=== PATIENT | male | born 1965 | race Caucasian/White ===

== ENCOUNTER 2021-03-15 02:07 | Outpatient (CLI) | payer OTHER, SELFPAY ==
--- NOTE | 2021-03-15 06:30 | DI.RAD_ITS ---
Exam(s) XR CHEST 2V PA LATERAL EXAM: XR CHEST 2V PA LATERAL CLINICAL HISTORY: left chest pain,r07.9. TECHNIQUE: 2D digital imaging was performed. COMPARISON: CR CHEST 2 VIEWS PA,LAT from 05/16/2014 FINDINGS: Heart size is normal. The mediastinum is not widened. Lungs are clear. No infiltrates nor pleural effusions. IMPRESSION: No acute pulmonary findings. DATA REPOSITORY: RADIATION DOSE DELIVERED:
== END 2021-03-15 02:27 ==
PROVIDERS: PCP Emergency Medicine; Visit Provider Emergency Medicine
DX: R07.9 Chest pain, unspecified (principal)
CPT/HCPCS: 71046

== ENCOUNTER 2021-08-12 13:29 | Emergency (ER) | payer OTHER, SELFPAY ==
[2021-08-12 14:12] VITALS: BP 133/67; PULSE 60; RESP 20; O2SAT 100
--- NOTE | 2021-08-12 14:27 | NUR.NOTE ---
Nursing Note: Pt to radiology via w/c w/tech.
--- NOTE | 2021-08-12 14:32 | DI.RAD_ITS ---
Exam(s) XR CHEST 2V PA LATERAL EXAM: XR CHEST 2V PA LATERAL CLINICAL HISTORY: sob, cough, covid + TECHNIQUE: 2D digital imaging was performed. COMPARISON: CR XR CHEST 2V PA LATERAL from 03/15/2021 FINDINGS: MEDIASTINUM: Normal. HEART: Normal. PULMONARY VASCULATURE: Normal. LUNGS: Clear. PLEURAL SPACE: No pleural effusion or pneumothorax. BONE:Unremarkable for age. IMPRESSION: No acute abnormality. DATA REPOSITORY: RADIATION DOSE DELIVERED:
--- NOTE | 2021-08-12 14:34 | NUR.NOTE ---
Nursing Note: Pt return from DI via w/c, no change in complaints, cont. to monitor.
--- NOTE | 2021-08-12 15:01 | W.ED.GENAD ---
Discharge Plan Disposition Patient Disposition: HOME Condition: Good Discharge Details Clinical Impression: COVID-19 Primary Care Provider: Ray Gardiner ED Provider: Srini Ng Home Meds and New Rx's Prescriptions: Continued (DME) Aerochamber MV Spacer See Rx Instructions .ROUTE .MEDSUPPLY Qty: 1 RF: 0 albuterol sulfate [Ventolin HFA] 90 mcg/actuation HFA aerosol inhaler 2 puff IH Q4H PRN (Reason: shortness of breath or wheezing) Qty: 8.5 RF: 4 sertraline 100 mg tablet 150 mg PO HS Qty: 120 RF: 3 clonazepam 0.5 mg tablet 0.5 mg PO .a.m. Qty: 20 RF: 0 ibuprofen 800 MG tablet 800 mg PO TID PRN PRN (Reason: PAIN) Qty: 30 RF: 0 Discharge Instructions Instructions: COVID-19 (Coronavirus Disease 2019) (ED) Additional Instructions: At this time your x-ray shows no evidence of pneumonia. Your lungs look very clear on x-ray. Your oxygen on her pulse oximetry is 99 to 100% which is good. Continue doing what you are doing, resting, drinking plenty of fluids, and a supplement of vitamin C, zinc. If you notice any worsening of your symptoms, or any new symptoms such as vomiting, diarrhea, fever, chills, shortness of breath, chest pain, numbness, weakness, or fainting , please return immediately to the emergency department for reevaluation. Please follow up with your primary care provider as soon as possible for reassessment and reevaluation. As always, it was a pleasure participating in your medical care today. Referrals: Ray Gardiner, [Primary Care Provider] - Discharge Data Discharge Date/Time-TO BE ENTERED AT DEPARTURE: 08/12/21 15:18 Medical Decision Making 55-year-old male with a past medical history of mild asthma, who is vaccinated but not boosted, who was diagnosed with COVID 3 to 4 days ago. Presents today for shortness of breath. He states that at home he feels mildly short of breath, he was using his pulse oximeter and his O2 was dropping low. Family recommended that he come in to get checked out he denies any hemoptysis, vomiting or diarrhea. He denies any chest pain or chest tightness. Denies any other complaints at this time. No other modifying factors. He is taking a vitamin supplement. Physical exam is notably unremarkable, normal lung sounds. Pulse oximetry here is 100% on room air. Good [place]ath. No tachycardia or tachypnea. Chest x-ray was ordered which shows no significant abnormality. Patient feels well. No indication for emergent monoclonal therapy at this time. I did offer back Flovent to the patient but with his minimal symptoms, he has declined for the time being. Patient stable for discharge. Discussed red flags for which to return. Recommend continued close monitoring of his symptoms and close follow-up with his PCP. I have extensively reviewed the treatment plan and discharge instructions with the patient. I have addressed all patient concerns at this time. The patient was made aware of what symptoms to monitor for that would warrant a return to the emergency department. Discussed the plan with the patient, they demonstrate verbal understanding and agreement with our assessment and plan at this time. The documentation in this chart was dictated using [employer] dictation software. Please excuse any dictation errors. FINDINGS: MEDIASTINUM: Normal. HEART: Normal. PULMONARY VASCULATURE: Normal. LUNGS: Clear. PLEURAL SPACE: No pleural effusion or pneumothorax. BONE:Unremarkable for age. IMPRESSION: No acute abnormality. HPI General Date/Time Provider Initiated Documentation: 08/12/21 13:52. HPI Narrative: 55-year-old male with a past medical history of mild asthma, who is vaccinated but not boosted, who was diagnosed with COVID 3 to 4 days ago. Presents today for shortness of breath. He states that at home he feels mildly short of breath, he was using his pulse oximeter and his O2 was dropping low. Family recommended that he come in to get checked out he denies any hemoptysis, vomiting or diarrhea. He denies any chest pain or chest tightness. Denies any other complaints at this time. No other modifying factors. He is taking a vitamin supplement. Related Data Home Medications Medication Instructions Recorded Confirmed ibuprofen 800 mg PO TID PRN PRN #30 tab 06/22/16 03/09/21 inhalational spacing device #1 each 08/21/19 03/09/21 albuterol sulfate 90 mcg/actuation 2 puff IH Q4H PRN #8.5 gm 07/15/21 aerosol inhaler sertraline 100 mg tablet 150 mg PO HS #120 tab 07/15/21 clonazepam 0.5 mg tablet 0.5 mg PO .a.m. #20 tab 08/10/21 Previous Rx's Medication Instructions Recorded ibuprofen 800 mg PO TID PRN PRN #30 tab 06/22/16 inhalational spacing device #1 each 08/21/19 albuterol sulfate 90 mcg/actuation 2 puff IH Q4H PRN #8.5 gm 07/15/21 aerosol inhaler sertraline 100 mg tablet 150 mg PO HS #120 tab 07/15/21 clonazepam 0.5 mg tablet 0.5 mg PO .a.m. #20 tab 08/10/21 Allergies Allergy/AdvReac Type Severity Reaction Status Date / Time No Known Allergies Allergy Verified 07/13/21 15:24 General Stated Complaint: RespSymp TREVOR: 3 Review of Systems All systems reviewed & are unremarkable except as noted in HPI and below PFSH All Active Problems COVID-19 (Acute) Left-sided chest pain (Acute) PTSD (post-traumatic stress disorder) (Acute) Mild intermittent asthma (Acute) Surgical History Repair, ACL left Social History Smoking/Tobacco Use Status: Former Tobacco Use Smoking risk assessment performed?: Yes Alcohol Intake: never Drug use: Never Substance use type: does not use Do you feel safe at home: Yes Do you feel safe in your relationship?: Yes Exam Narrative Exam Narrative: 1.Const: Well-nourished, Well-developed, appearing stated age 2.Eyes: PERRL, no conjunctival injection, and symmetrical lids. 3.ENT: Atraumatic external nose and ears. Moist MM. Neck: Symmetric, trachea midline, No thyromegaly. 4.CVS: +S1/S2, No murmurs or gallops. Peripheral pulses 2+ and equal in all extremities. Brisk capillary refill in all extremities. 5.RESP: Unlabored respiratory effort. Clear to auscultation bilaterally. No wheezes rales or rhonchi. 6.GI: Soft, Nontender/Nondistended, No hepatosplenomegaly. No guarding or rebound. 7.MSK: Normocephalic/Atraumatic, Extremities w/o deformity or ttp No cyanosis or clubbing, Normal movement of all extremities 8.Skin: Warm, Dry. No rashes or lesions. 9.Neuro: boilermaker industrial boilers II-XII grossly intact. Sensation grossly intact, no focal neurologic deficits. 10.Psych: (AAO) x3. Appropriate mood and affect Course Vital Signs Vital signs: Vital Signs Pulse 60 08/12/21 14:12 Respiratory Rate 20 08/12/21 14:12 Blood Pressure 133/67 08/12/21 14:12 Pulse Oximetry 100 08/12/21 14:12 Pulse 60 08/12/21 14:12 Respiratory Rate 20 08/12/21 14:12 Respiratory Effort Labored 08/12/21 14:35 Respiratory Depth Shallow 08/12/21 14:35 Blood Pressure 133/67 08/12/21 14:12 Blood Pressure Position Sitting 08/12/21 14:12 Pulse Oximetry 100 08/12/21 14:12 Oxygen Delivery Method Room Air 08/12/21 14:12 Oxygen Flow Rate 0 08/12/21 14:12
== END 2021-08-12 15:18 | disposition home or self-care (01) ==
PROVIDERS: Emergency Provider Student in an Organized Health Care Education/Training Program; PCP Emergency Medicine
DX: U07.1 COVID-19 (principal); R05.1 Acute cough; R06.02 Shortness of breath
CPT/HCPCS: 99283; 71046

== ENCOUNTER → 2021-09-20 01:44 | Outpatient (CLI) | payer OTHER, SELFPAY | PROVIDERS: PCP Family Medicine; Visit Provider Emergency Medicine ==

== ENCOUNTER → 2023-07-26 01:04 | Outpatient (CLI) | payer BC, SELFPAY ==
--- NOTE | 2023-07-26 08:30 | DI.RAD_ITS ---
Exam(s) XR LUMBAR SPINE COMPLETE EXAM: XR LUMBAR SPINE COMPLETE CLINICAL HISTORY: low back pain;hx of bulging disc,M54.9. TECHNIQUE: 2D digital imaging was performed. Five views. COMPARISON: No exams were available for comparison FINDINGS: BONES: No fracture or destructive lesion. Vertebral body heights are maintained. Small endplate oste ophytes. Mild facet hypertrophy identified. DISKS: Intervertebral disc spaces are maintained. ALIGNMENT: Lumbar spinal alignment is within normal limits. SOFT TISSUE: Normal. IMPRESSION: mild degenerative changes. DATA REPOSITORY: RADIATION DOSE DELIVERED:
== END ==
PROVIDERS: PCP Family Medicine; Visit Provider Family Medicine
DX: M54.9 Dorsalgia, unspecified (principal)
CPT/HCPCS: 72110

== ENCOUNTER 2023-10-16 13:58 | Outpatient (CLI) | payer BC, SELFPAY ==
[2023-10-16 12:40] LABS: Bilirubin Negative (Negative); Blood Negative (Negative); Clarity Clear (Clear); Glucose Negative (Negative); Ketones Negative (Negative); Leukocyte Esterase Negative (Negative); Nitrite Negative (Negative); Specific Gravity >= 1.030 (1.005-1.025); Urobilinogen 0.2 mg/dL (Up to 0.2)
[2023-10-16 13:16] LABS: ALT 30 U/L (16-63); AST 15 U/L (15-37); Albumin 4.4 g/dL (3.4-5.0); Alkaline Phosphatase 65 U/L (46-116); Anion Gap 10.5 mmol/L (3-11); BUN 16 mg/dL (7-18); Bilirubin, Total 0.7 mg/dL (0.2-1.0); CO2 25.5 mmol/L (21.0-32.0); CREATININE 1.1 mg/dL (0.70-1.30); Calcium 9.7 mg/dL (8.5-10.1); Calculated LDL 151 mg/dL (<100); Chloride 104 mmol/L (98-107); Cholesterol 237 mg/dL (<200); Estimated GFR 78.79 (mL/min/1.73m2); Glucose 95 mg/dL (74-106); HDL Cholesterol 63 mg/dL (40-60); Potassium 4.3 mmol/L (3.5-5.1); Sodium 140 mmol/L (136-145); Total Protein 7.5 g/dL (6.4-8.2); Triglyceride 115 mg/dL (<150)
[2023-10-16 22:56] LABS: PSA, Screening 1.1 ng/mL (<=3.5)
[2023-10-16 23:34] LABS: HIV-1/2 Ag & Ab Screen Negative (Negative)
[2023-10-16 23:36] LABS: Hepatitis C Ab w Rflx HCV PCR Negative (Negative)
== END 2023-10-16 13:59 | disposition home or self-care (01) ==
LOC: LBO 13:59
PROVIDERS: PCP Family Medicine; Visit Provider Family Medicine
DX: R30.0 Dysuria (principal); I10 Essential (primary) hypertension; Z00.00 Encounter for general adult medical examination without abnormal findings; Z13.6 Encounter for screening for cardiovascular disorders; Z12.5 Encounter for screening for malignant neoplasm of prostate; Z11.4 Encounter for screening for human immunodeficiency virus [HIV]
CPT/HCPCS: 36415; 80053; 80061; 84153; 86803; 87389; 81003